=== PATIENT | male | born 1965 | race Caucasian/White ===

== ENCOUNTER 2020-09-23 20:00 | Emergency (ER) | payer OTHER ==
[~2020-09-23 20:00] MED LIST: ATIVAN1 MG PO
[2020-09-23 21:04] LABS: BASOPHIL 1.5 % (0-2); EOSINOPHIL 1.9 % (0-5); HGB 11.2 g/dl (13.2-18.0); LYMPHOCYTE 13.4 % (15-48); MCH 32.8 pg (25.0-31.0); MCV 93.8 fL (78.0-100.0); MONOCYTE 10.6 % (0-12); MPV 9.6 fL (6.0-9.5); NEUTROPHIL 72.2 % (41-80); NRBC 0; PLT 106 K/uL (150-400); RBC 3.41 M/uL (4.70-6.00); RDW 12.3 % (11.5-14.0); WBC 4.7 K/uL (4.0-10.5)
[2020-09-23 21:25] LABS: ALBUMIN 3.2 g/dL (3.4-5.0); BILIRUBIN - TOTAL 0.4 mg/dL (0.2-1.0); BUN/CREAT RATIO (CALC) 12.1 RATIO; CREATININE 0.66 mg/dL (0.67-1.17); GLOBULIN (CALCULATION) 2.7 g/dL; POTASSIUM 3.5 mmol/L (3.5-5.1); TOTAL PROTEIN 5.9 g/dL (6.4-8.2)
== END 2020-09-23 22:50 | disposition other institution (70) ==
LOC: FER 20:00
PROVIDERS: Emergency Medicine
DX: S06.6X9A Traumatic subarachnoid hemorrhage with loss of consciousness of unspecified duration, initial encounter (principal); S01.01XA Laceration without foreign body of scalp, initial encounter; M25.512 Pain in left shoulder; M79.632 Pain in left forearm; I10 Essential (primary) hypertension; Z87.19 Personal history of other diseases of the digestive system; Z23 Encounter for immunization; Z88.0 Allergy status to penicillin; F10.129 Alcohol abuse with intoxication, unspecified; W10.9XXA Fall (on) (from) unspecified stairs and steps, initial encounter; Y92.009 Unspecified place in unspecified non-institutional (private) residence as the place of occurrence of the external cause; Y90.8 Blood alcohol level of 240 mg/100 ml or more
CPT/HCPCS: 36415; 70450; 72125; 73060; 73090; 80053; 85025; 90471; 90715; 96365; 96368; 96375; G0480; J1170; J1953; J2405; J3411; J3475; J7030

== ENCOUNTER 2021-02-08 13:25 | Emergency (ER) | payer OTHER ==
[2021-02-08 14:44] LABS: BASOPHIL 1.3 % (0-2); EOSINOPHIL 0.7 % (0-5); HCT 44.8 % (42.0-52.0); HGB 15.4 g/dl (13.2-18.0); LYMPHOCYTE 22.1 % (15-48); MCH 31.4 pg (25.0-31.0); MCHC 34.4 g/dL (32.0-36.0); MCV 91.2 fL (78.0-100.0); MONOCYTE 21.2 % (0-12); MPV 9.8 fL (6.0-9.5); NEUTROPHIL 53.4 % (41-80); NRBC 0; PLT 114 K/uL (150-400); RBC 4.91 M/uL (4.70-6.00)
[2021-02-08 14:47] LABS: WBC 3.1 K/uL (4.0-10.5)
[2021-02-08 15:01] LABS: CREATININE 0.6 mg/dL (0.67-1.17); POTASSIUM 3.4 mmol/L (3.5-5.1)
[2021-02-08] MEDS ORDERED: VENTOLIN HFA IN18 GM INH (15:35)
[2021-02-08] MEDS ORDERED: MEDROL 4MG DOSEP4 MG PO (15:35)
== END 2021-02-08 15:49 | disposition home or self-care (01) ==
LOC: FER 13:25
PROVIDERS: Nurse Practitioner Family
DX: U07.1 COVID-19 (principal)
CPT/HCPCS: 36415; 71045; 80048; 85025; J1100; J7030